=== PATIENT | female | born 1985 | race African-American/Black ===

== ENCOUNTER 2021-06-15 00:42 | Emergency (ER) | payer BC ==
[~2021-06-15] VITALS: Ht 167.6 cm; Wt 95.0 kg
[2021-06-15] MEDS ORDERED: ONDANSETRON PF 4 MG/2 ML VIAL. ONE (00:56)
[2021-06-15] MEDS ORDERED: IV NORMAL SALINE 1000ML BAG 1,000 ML IV ONE ×2 (01:15→03:15)
[2021-06-15] MEDS ORDERED: KETOROLAC 15 MG/ML VIAL. IVP ONE (01:15)
[2021-06-15] MEDS ORDERED: ONDANSETRON PF 4 MG/2 ML VIAL. IVP ONE (01:15)
[2021-06-15] MEDS ORDERED: FAMOTIDINE 20 MG/2 ML VIAL IVP ONE (01:15)
[2021-06-15 01:22] LABS: BASO # 0.1 x10^3/uL (0.0-0.2); BASO % 1 % (0-3); EOS # 0.2 x10^3/uL (0.0-0.7); EOS % 2 % (0-3); HEMATOCRIT 37.2 % (36.0-47.0); HEMOGLOBIN 12.2 g/dL (12.0-15.5); LYMPH # 2.9 x10^3/uL (1.0-4.8); LYMPH % 37 % (24-48); MEAN CORPUSCULAR HEMOGLOBIN 28 pg (25-35); MEAN CORPUSCULAR HGB CONC 33 g/dL (31-37); MEAN CORPUSCULAR VOLUME 85 fL (79-100); MONO # 0.7 x10^3/uL (0.0-1.1); MONO % 10 % (0-9); NEUT # 3.9 x10^3/uL (1.8-7.7); NEUT % 50 % (31-73); PLATELET COUNT 389 x10^3/uL (140-400); RED CELL DISTRIBUTION WIDTH 16.4 % (11.5-14.5); WHITE BLOOD COUNT 7.7 x10^3/uL (4.0-11.0)
[2021-06-15 01:42] LABS: ALBUMIN 4.1 g/dL (3.4-5.0); CALCIUM 9.2 mg/dL (8.5-10.1); CREATININE 1.1 mg/dL (0.6-1.0); GFR 68.4; TOTAL BILIRUBIN 0.2 mg/dL (0.2-1.0); TOTAL PROTEIN 8.1 g/dL (6.4-8.2)
[2021-06-15 01:46] LABS: POTASSIUM 2.5 mmol/L (3.5-5.1)
[2021-06-15] MEDS ORDERED: POTASSIUM CHLORIDE 10 MEQ TABLET.ER. PO ONE (02:00)
--- NOTE | 2021-06-15 02:12 | PHYS DOC ---
Past Medical History Additional Past Medical Histor: ACNE Past Surgical History: No Surgical History General Adult EDM: Chief Complaint: Palpitations HPI: HPI: Patient is a 35 year old [f__sex] who presents with [] Review of Systems: Review of Systems: Constitutional: Denies fever or chills. [] Eyes: Denies change in visual acuity. [] HENT: Denies nasal congestion or sore throat. [] Respiratory: Denies cough or shortness of breath. [] Cardiovascular: Denies chest pain or edema. [] GI: Denies abdominal pain, nausea, vomiting, bloody stools or diarrhea. [] : Denies dysuria. [] Musculoskeletal: Denies back pain or joint pain. [] Integument: Denies rash. [] Neurologic: Denies headache, focal weakness or sensory changes. [] Endocrine: Denies polyuria or polydipsia. [] Lymphatic: Denies swollen glands. [] Psychiatric: Denies depression or anxiety. [] Heart Score: Risk Factors: Risk Factors: DM, Current or recent (<one month) smoker, HTN, HLP, family history of CAD, obesity. Risk Scores: Score 0 - 3: 2.5% MACE over next 6 weeks - Discharge Home Score 4 - 6: 20.3% MACE over next 6 weeks - Admit for Clinical Observation Score 7 - 10: 72.7% MACE over next 6 weeks - Early Invasive Strategies Current Medications: Current Medications Medications (Trade) Dose Ordered Sig/Kale Start Time Stop Time Status Last Admin Dose Admin Famotidine (Pepcid Vial) 20 mg 1X ONCE 06/15/21 01:15 06/15/21 01:16 DC 06/15/21 01:15 20 MG Ketorolac Tromethamine (Toradol 15mg Vial) 15 mg 1X ONCE 06/15/21 01:15 06/15/21 01:16 DC 06/15/21 01:15 15 MG Ondansetron HCl (Zofran) 4 mg 1X ONCE 06/15/21 01:15 06/15/21 01:16 DC 06/15/21 01:10 4 MG Potassium Chloride (Klor-Con) 40 meq 1X ONCE 06/15/21 02:00 06/15/21 02:01 DC Sodium Chloride 1,000 ml @ 1,000 mls/hr 1X ONCE 06/15/21 01:15 06/15/21 02:14 06/15/21 01:14 1,000 MLS/HR Allergies: Allergies: Allergies Coded Allergies Type Severity Reaction Last Updated Verified No Known Drug Allergies 06/15/21 No Physical Exam: PE: Constitutional: Well developed, well nourished, no acute distress, non-toxic appearance. [] HENT: Normocephalic, atraumatic, bilateral external ears normal, oropharynx mo ist, no oral exudates, nose normal. [] Eyes: PERRLA, EOMI, conjunctiva normal, no discharge. [] Neck: Normal range of motion, no tenderness, supple, no stridor. [] Cardiovascular:Heart rate regular rhythm, no murmur [] Lungs & Thorax: Bilateral breath sounds clear to auscultation [] Abdomen: Bowel sounds normal, soft, no tenderness, no masses, no pulsatile masses. [] Skin: Warm, dry, no erythema, no rash. [] Back: No tenderness, no CVA tenderness. [] Extremities: No tenderness, no cyanosis, no clubbing, ROM intact, no edema. [] Neurologic: Alert and oriented X 3, normal motor function, normal sensory function, no focal deficits noted. [] Psychologic: Affect normal, judgement normal, mood normal. [] Current Patient Data: Labs: Laboratory Tests Test 06/15/21 00:52 White Blood Count 7.7 x10^3/uL (4.0-11.0) Red Blood Count 4.40 x10^6/uL (3.50-5.40) Hemoglobin 12.2 g/dL (12.0-15.5) Hematocrit 37.2 % (36.0-47.0) Mean Corpuscular Volume 85 fL (79-100) Mean Corpuscular Hemoglobin 28 pg (25-35) Mean Corpuscular Hemoglobin Concent 33 g/dL (31-37) Red Cell Distribution Width 16.4 % (11.5-14.5) H Platelet Count 389 x10^3/uL (140-400) Neutrophils (%) (Auto) 50 % (31-73) Lymphocytes (%) (Auto) 37 % (24-48) Monocytes (%) (Auto) 10 % (0-9) H Eosinophils (%) (Auto) 2 % (0-3) Basophils (%) (Auto) 1 % (0-3) Neutrophils # (Auto) 3.9 x10^3/uL (1.8-7.7) Lymphocytes # (Auto) 2.9 x10^3/uL (1.0-4.8) Monocytes # (Auto) 0.7 x10^3/uL (0.0-1.1) Eosinophils # (Auto) 0.2 x10^3/uL (0.0-0.7) Basophils # (Auto) 0.1 x10^3/uL (0.0-0.2) Sodium Level 142 mmol/L (136-145) Potassium Level 2.5 mmol/L (3.5-5.1) *L Chloride Level 104 mmol/L (98-107) Carbon Dioxide Level 26 mmol/L (21-32) Anion Gap 12 (6-14) Blood Urea Nitrogen 16 mg/dL (7-20) Creatinine 1.1 mg/dL (0.6-1.0) H Estimated GFR (Cockcroft-Gault) 68.4 BUN/Creatinine Ratio 15 (6-20) Glucose Level 139 mg/dL (70-99) H Calcium Level 9.2 mg/dL (8.5-10.1) Total Bilirubin 0.2 mg/dL (0.2-1.0) Aspartate Amino Transferase (AST) 19 U/L (15-37) Alanine Aminotransferase (ALT) 24 U/L (14-59) Alkaline Phosphatase 87 U/L (46-116) Creatine Kinase 121 U/L (26-192) Creatine Kinase MB (Mass) 0.9 ng/mL (0.0-3.6) Creatine Kinase MB Relative Index 0.7 % (0-4) Troponin I Quantitative < 0.017 ng/mL (0.000-0.055) Total Protein 8.1 g/dL (6.4-8.2) Albumin 4.1 g/dL (3.4-5.0) Albumin/Globulin Ratio 1.0 (1.0-1.7) Lipase 403 U/L (73-393) H Laboratory Tests 06/15/21 00:52 Laboratory Tests 06/15/21 00:52 Vital Signs: Vital Signs Date Time Temp Pulse Resp B/P (MAP) Pulse Ox O2 Delivery O2 Flow Rate FiO2 06/15/21 00:50 98.0 124 18 168/106 100 Room Air 98.0 EKG: EKG: @0051 Sinus tachycardia at 124bpm, NO ST elevation, QRS 70ms, QT/QTc 344/499ms, Q wave III Radiology/Procedures: Radiology/Procedures: PROCEDURE: CT ABDOMEN PELVIS WO CONTRAST PQRS Compliance Statement: One or more of the following individualized dose reduction techniques were utilized for this examination: 1. Automated exposure control 2. Adjustment of the mA and/or kV according to patient size 3. Use of iterative reconstruction technique CT ABDOMEN+PELVIS WO Clinical Indication: Reason: abdominal pain, intractable N/V / Spl. Instructions: / History: Comparison: None. Technique: Helical CT imaging of the abdomen and pelvis is performed without IV or oral contrast. Findings: Evaluation of solid organs and bowel is limited without oral and IV contrast, decreasing sensitivity for detection of pathology. Mild atelectasis in the lung bases. Cardiac size normal. The liver, gallbladder, spleen, pancreas, adrenal glands, and abdominal aorta are normal. There is no hydronephrosis or perinephric stranding. No renal calculus. No gastric wall thickening is identified. The appendix is normal. There is no dilated small bowel. No colon wall thickening is seen. There is no abdominal adenopathy or free fluid. The urinary bladder is normal. The uterus is enlarged and is lobular. Uterine fibroids could contribute to this appearance, not well evaluated with noncontrast CT. No pelvic free fluid. There is mild disc space narrowing and vacuum disc phenomenon of L5/S1. No acute bone abnormality. IMPRESSION: 1. No acute abdominal or pelvic abnormality. 2. Uterus is enlarged and lobular. Suggest pelvic ultrasound. Electronically signed by: Robi Bhatia MD (06/15/2021 5:21 AM) [facility] Course & Med Decision Making: Course & Med Decision Making Pertinent Labs and Imaging studies reviewed. (See chart for details) [] Darcie Disclaimer: Dracie Disclaimer: This electronic medical record was generated, in whole or in part, using a voice recognition dictation system. Departure Departure Impression: Primary Impression: Nausea vomiting and diarrhea Additional Impression: Hypokalemia Disposition: 01 HOME / SELF CARE / HOMELESS Condition: STABLE Referrals: NO PCP (PCP) Patient Instructions: Clear Liquid Diet, Ammj-se-Naab, Diarrhea, [id number]-Giyv, Diet for Diarrhea, Adult, Hypokalemia, Nausea and Vomiting, [id number], Potassium Content of Foods, Viral Gastroenteritis, Zubk-[id number] Scripts Potassium Chloride (KLOR-CON M10) 10 Meq Tab.er.prt 20 MEQ PO DAILY, #20 TAB.SR Prov: NAYELI MANNING DO 06/15/21 Famotidine (PEPCID) 20 Mg Tablet 20 MG PO BID, #30 TAB Prov: NAYELI MANNING DO 06/15/21 Ondansetron (ONDANSETRON ODT) 4 Mg Tab.rapdis 1 TAB PO PRN Q6-8HRS PRN for NAUSEA, #16 TAB Prov: NAYELI MANNING DO 06/15/21 NAYELI MANNING DO Jun 15, 2021 02:12
[2021-06-15] MEDS ORDERED: METOCLOPRAMIDE HCL 10 MG/2 ML VIAL. IVP ONE (03:15)
--- NOTE | 2021-06-15 03:41 | EKG ---
[facility] [address] [place] [id number] Test Date: 2021-06-15 Test Time: 00:51:07 Pat Name: YULIA TY Department: Room: Gender: F [employer] [address] [employer]: : 1985 Requested By: NAYELI MANNING Order Number: [id number] Reading MD: Measurements Intervals [place] Rate: 124 P: 239 CT: 118 QRS: 19 QRSD: 70 T: 42 QT: 344 QTc: 499 Interpretive Statements SUPRAVENTRICULAR RHYTHM QRS(T) CONTOUR ABNORMALITY CONSISTENT WITH ANTERIOR INFARCT PROBABLY OLD ABNORMAL ECG RI6.02 No previous ECG available for comparison
[2021-06-15 04:24] LABS: BILIRUBIN,URINE NEGATIVE (NEG); CLARITY,URINE CLEAR; COLOR,URINE YELLOW; NITRITE,URINE NEGATIVE (NEG); PH,URINE 6.5 (<5.0-8.0); PROTEIN,URINE NEGATIVE (NEG-TRACE); UROBILINOGEN,URINE 0.2 mg/dL (0.2 mg/dL)
[2021-06-15 04:30] LABS: BACTERIA,URINE 0 /HPF (0-FEW); HYALINE CASTS, URINE FEW /HPF; RBC,URINE 0 /HPF (0-2)
--- NOTE | 2021-06-15 05:23 | RAD ---
PQRS Compliance Statement: One or more of the following individualized dose reduction techniques were utilized for this examinat ion: 1. Automated exposure control 2. Adjustment of the mA and/or kV according to patient size 3. Use of iterative reconstruction technique CT ABDOMEN+PELVIS WO Clinical Indication: Reason: abdominal pain, intractable N/V / Spl. Instructions: / History: Comparison: None. Technique: Helical CT imaging of the abdomen and pelvis is performed without IV or oral contrast. Findings: Evaluation of solid organs and bowel is limited without oral and IV contrast, decreasing sensitivity for detection of pathology. Mild atelectasis in the lung bases. Cardiac size normal. The liver, gallbladder, spleen, pancreas, adrenal glands, and abdominal aorta are normal. There is no hydronephrosis or perinephric stranding. No renal calculus. No gastric wall thickening is identified. The appendix is normal. There is no dilated small bowel. No colon wall thickening is seen. There is no abdominal adenopathy or free fluid. The urinary bladder is normal. The uterus is enlarged and is lobular. Uterine fibroids could contribu te to this appearance, not well evaluated with noncontrast CT. No pelvic free fluid. There is mild disc space narrowing and vacuum disc phenomenon of L5/S1. No acute bone abnormality. IMPRESSION: 1. No acute abdominal or pelvic abnormality. 2. Uterus is enlarged and lobular. Suggest pelvic ultrasound. Electronically signed by: Robi Bhatia MD (06/15/2021 5:21 AM) [facility]
[2021-06-15 05:55] VITALS: BP 139/70
[2021-06-15] MEDS ORDERED: ONDA4TAB12 PO (06:16)
[2021-06-15] MEDS ORDERED: FAMO-63 PO (06:16)
[2021-06-15] MEDS ORDERED: POTA10TA12 PO (06:16)
--- NOTE | 2021-06-15 16:25 | NUR ---
IP: Attempted to contact pt concerning covid results. No answer, left a voicemail to return the call.
--- NOTE | 2021-06-16 09:44 | NUR ---
IP: Informed pt of negative covid test. Pt verbalized understanding.
== END 2021-06-15 06:38 | disposition home or self-care (01) ==
LOC: ER 00:42
DX: R11.2 Nausea with vomiting, unspecified (principal); Z20.822 Contact with and (suspected) exposure to COVID-19; R19.7 Diarrhea, unspecified; E87.6 Hypokalemia
CPT/HCPCS: 36415; 74176; 80053; 81001; 81025; 82553; 83690; 83735; 84484; 85025; 87426; 93005; 96361; 96374; 96375; 99285; J1885; J2405; J2765; J3490; J7030; U0003; U0005